=== PATIENT | female | born 1995 | race Caucasian/White ===

== ENCOUNTER 2018-11-18 22:20 | Emergency (ER) | payer OTHER, SELFPAY ==
[2018-11-18 22:21] VITALS: BP 112/74; PULSE 77; RESP 16; TEMP 36.6; O2SAT 100; BMI 21.5
--- NOTE | 2018-11-18 23:05 | CT_ITS ---
STUDY: CT FACIAL BONES WITHOUT CONTRAST REASON FOR EXAM: Female, 23 years old. Fell and hit chin, teeth don't feel aligned now. RADIATION DOSAGE (If Supplied By Facility): CTDIvol = ( 29.38 ) mGy, DLP = ( 503.38 ) mGycm TECHNIQUE: The patient was scanned in a multi detector CT scanner. Sagittal and coronal images were reconstructed. Individualized dose optimization techniques were used for this CT. COMPARISON: None. FINDINGS: Normal soft tissue structures. There is a hairline fracture without displacement involving the anterior mandible symphysis between the central incisors tooth #24 and 25 involving the left central incisor root to the #24. The fracture courses inferiorly right paracentral to the symphysis. Remainder of the visualized mandible is intact. Temporomandibular joints are maintained. Zygomatic arches are intact. Normal orbital ca and orbital contents. Normal nasal bones and anterior nasal spine. Normal facial bones. There is no demonstrated fracture. Moderate chronic sinus disease of the bilateral maxillary sinuses. Minimal mucosal thickening of the bilateral ethmoid sinuses, clear sphenoid, frontal sinuses and mastoid air cells CT/Sinus/Facial Bone IMPRESSION: Nondisplaced fracture of the anterior symphysis mandible with fracture involving the left central incisor root with minimal adjacent lucency to the #24. The remainder of the visualized mandible and temporomandibular joints and facial bones are intact. Moderate chronic sinus disease. Electronically Signed: Janice De Anda MD at 0:00 EDT , Service support ,
[2018-11-18] MEDS: HYDROcodone Bitartrate/Apap 5/325 Tablet PO (23:17)
--- NOTE | 2018-11-18 23:34 | ED.DCSUM_ITS ---
- ER Visit Summary Date of Service: 11/18/18 Chief Complaint: [Fall and injury to chin] History of Present Illness: The patient is a 23 F [presents to the emergency department after sustaining a fall earlier this evening. Patient tripped in her flip-flops while running after the dog and struck her chin on concrete. No loss of consciousness. She denies any neck pain. Patient was initially able to open and close her mouth without difficulty but it become more painful and uncomfortable. Patient unsure of her last tetanus shot. She has no medical history.] Physical Examination: [HEENT-PERRLA, EOMI. Cranial nerves II through XII grossly intact. TMs clear. Mucous membranes moist. No adenopathy. No hemotympanum. No significant malocclusion noted. Patient does have some tenderness to the lower front incisors with a small gap noted between the 2 and small amount of blood between the tooth and the gingiva. No lacerations noted in the mouth. Patient does have a 2.5 cm laceration over the inferior chin. No C-spine tenderness on palpation. Cardiovascular-regular rate and rhythm without murmur or ectopy Lungs-clear to auscultation, chest wall stable without crepitus or subcu emphysema Abdomen-normoactive bowel sounds, soft, nontender, no rebound or rigidity, no peritoneal signs. Extremities-intact ?4, normal range of motion, normal pulses, atraumatic] Test Results: [CT scan of the facial bones obtained which showed a nondisplaced fracture of the mandible anteriorly between teeth 24 and 25.] Emergency Department Course and Treatment: [Laceration repair-wound sterilely draped and prepped. Wound anesthetized locally with 1% lidocaine total 2 cc. Wound cleansed with Shur-Clens and irrigated with copious saline. Particulate debris was removed from the wound which appeared to be grass. Using 6-0 nylon a total of 3 single interrupted sutures placed with good wound edge approximation. Patient tolerated procedure well.] Treatment Plan: [Patient advised to have sutures removed in 5 to 7 days. Patient will be referred to oral maxillofacial surgeon for follow-up. Patient will be started on [place] for pain and Augmentin.] Disposition: [Discharged home in stable condition] Impression: [Mandible fracture Chin laceration 2.5 cm-simple repair] This note was generated with Dragon dictation software. It may contain incorrect words, spelling, and punctuation that were not noted in review of the chart prior to signing ED Disposition - Plan for ED Patient: Referrals: Margarito Kirk MD [Primary Care Provider] -
--- NOTE | 2018-11-19 00:16 | DCINST.ED_ITS ---
ED Disposition - Plan for ED Patient: Instructions: ED Laceration Chin Sutr Tape, ED Fx Mandible Prescriptions: Hydrocodone Bitart/Apap 5-325 [[place] 5MG-325MG] 1 tab PO Q4H PRN PRN 2 Days #20 tab PRN Reason: Pain Amox/Clavulanate Tablet [Augmentin Tablet] 875 mg PO Q12H #20 tab Referrals: Margarito Kirk MD [Primary Care Provider] - Tavon Snyder DDS [STAFF PHYSICIAN] - 3-5 Days
[2018-11-19] MEDS: Diphth,Pertuss(Acell),Tet Vac 0.5 ML Vial IM (00:22)
[2018-11-19] MEDS: Amox/Clavulanate 875 MG Tablet PO (00:33)
[2018-11-19] MEDS: HYDROcodone Bitartrate/Apap 5/325 Tablet PO (00:34)
[2018-11-19 00:45] VITALS: PULSE 90; RESP 16; O2SAT 99
== END 2018-11-19 00:45 | disposition home or self-care (01) ==
PROVIDERS: Emergency Provider Emergency Medicine; Family Provider Family Medicine; PCP Family Medicine
DX: S02.66XB Fracture of symphysis of mandible, initial encounter for open fracture (principal); W01.0XXA Fall on same level from slipping, tripping and stumbling without subsequent striking against object, initial encounter; Y93.02 Activity, running; Y92.008 Other place in unspecified non-institutional (private) residence as the place of occurrence of the external cause; Y99.8 Other external cause status
CPT/HCPCS: 12011; 70486; 90471; 90715; 99285

== ENCOUNTER → 2021-01-13 16:29 | Outpatient (CLI) | payer OTHER, SELFPAY ==
[2021-01-13 17:18] LABS: Absolute Lymphocyte Count 2.53 X10^3/uL (0.83-4.51); Basophil# 0.06 X10^3/uL; Basophil% 0.5 % (0-1); Eosinophil# 0.12 X10^3/uL; Hematocrit 35.3 % (37-47); Hemoglobin 11.9 g/dL (12.0-15.0); Lymphocyte # 2.53 X10^3/ul (0.83-4.51); Lymphocyte % 22.1 % (19-41); Mean Corp Hgb Conc 33.7 g/dL (32-36); Mean Corpuscular Hgb 30.4 pg (27.0-32.0); Mean Corpuscular Volume 90.3 fL (81-99); Mean Platelet Vol. 11.1 fl (6.2-12.0); Monocyte# 0.68 X10^3/uL; Monocyte% 5.9 % (0-10); NRBC Flagged by Analyzer 0 % (0-5); Neutrophil # 8.02 X10^3/uL (2.7-7.7); Neutrophil % 70.2 % (47-70); Platelet Count 321 K/mm3 (150-450); RBC Distribution Width CV 11.9 % (11.6-14.6); RBC Distribution Width SD 38.5 fl (35.1-43.9); Red Blood Count 3.91 M/mm3 (4.2-5.4); White Blood Count 11.4 K/mm3 (4.4-11.0)
[2021-01-14 09:13] LABS: HIV - WCH Non-Reactive (Nonreactive); Hepatitis B Surface Antigen Non-Reactive (Nonreactive); Hepatitis C Antibody Non-Reactive (Nonreactive); Rubella IgG Reactive (Nonreactive); Syphilis Antibodies Non-reactive
[2021-01-16 03:07] LABS: Chlamydia By Nucleic Acid AMP Negative (Negative)
[2021-01-16 07:59] LABS: Gonococcus By Nucleic Acid AMP Negative (Negative)
== END ==
PROVIDERS: PCP Family Medicine; Visit Provider Obstetrics & Gynecology
DX: Z32.01 Encounter for pregnancy test, result positive (principal); Z11.3 Encounter for screening for infections with a predominantly sexual mode of transmission
CPT/HCPCS: 36415; 85025; 86703; 86762; 86780; 86803; 87086; 87088; 87340; 87491; 87591

== ENCOUNTER → 2021-02-27 16:38 | Outpatient (CLI) | payer OTHER, SELFPAY ==
[2021-02-27 17:19] LABS: Hematocrit 35.1 % (37-47); Hemoglobin 12.3 g/dL (12.0-15.0); Mean Corpuscular Hgb 31.1 pg (27.0-32.0); Mean Corpuscular Volume 88.9 fL (81-99); Platelet Count 281 K/mm3 (150-450); RBC Distribution Width CV 12.2 % (11.6-14.6); RBC Distribution Width SD 39.8 fl (35.1-43.9); Red Blood Count 3.95 M/mm3 (4.2-5.4); White Blood Count 11.9 K/mm3 (4.4-11.0)
[2021-02-27 18:25] LABS: Anion Gap 8 (5-15); BUN 11 mg/dL (7-18); BUN/Creat Ratio 18.9 RATIO (10-20); Calcium,Total 9.4 mg/dL (8.5-10.1); Chloride 102 mmol/L (98-107); Creatinine, Serum 0.58 mg/dL (0.55-1.02); EST Glomerular Filtration Rate 131 mL/min (>60); Est Glom Filt Rate - Afr Amer 159 mL/min (>60); Glucose 79 mg/dL (74-106); Potassium 3.6 mmol/L (3.5-5.1); Sodium Level 136 mmol/L (136-145); T4 Free Direct 0.92 ng/dL (0.76-1.46); Thyroid Stim Hormone (TSH) 1.65 uIU/mL (0.358-3.74)
== END ==
PROVIDERS: PCP Family Medicine; Visit Provider Obstetrics & Gynecology
DX: Z34.82 Encounter for supervision of other normal pregnancy, second trimester (principal)
CPT/HCPCS: 36415; 80048; 84439; 84443; 85027

== ENCOUNTER → 2021-04-29 | Outpatient (CLI) | payer OTHER, SELFPAY ==
[2021-04-29 17:10] LABS: Hematocrit 32.5 % (37-47); Hemoglobin 10.9 g/dL (12.0-15.0); Mean Corp Hgb Conc 33.5 g/dL (32-36); Mean Corpuscular Hgb 31.6 pg (27.0-32.0); Mean Corpuscular Volume 94.2 fL (81-99); Mean Platelet Vol. 10.3 fl (6.2-12.0); Platelet Count 286 K/mm3 (150-450); RBC Distribution Width CV 13.6 % (11.6-14.6); RBC Distribution Width SD 46.4 fl (35.1-43.9); Red Blood Count 3.45 M/mm3 (4.2-5.4)
[2021-04-29 17:36] LABS: Glucose Challenge Gest 1H 50g 123 mg/dL (70-140)
== END | disposition home or self-care (01) ==
LOC: LABSPEC 16:38
PROVIDERS: PCP Family Medicine; Visit Provider Obstetrics & Gynecology
DX: Z34.82 Encounter for supervision of other normal pregnancy, second trimester (principal)
CPT/HCPCS: 36415; 82950; 85027

== ENCOUNTER 2021-07-21 17:00 | Outpatient (CLI) | payer OTHER, SELFPAY | END 2021-07-21 23:59 | disposition short-term general hospital (02) | LOC: LABSPEC 07-22 09:04 | PROVIDERS: PCP Family Medicine; Visit Provider Obstetrics & Gynecology | DX: Z36.85 Encounter for antenatal screening for Streptococcus B (principal) | CPT/HCPCS: 87077; 87081; 87186 ==

== ENCOUNTER 2021-08-18 11:30 | Inpatient (IN) | payer OTHER, SELFPAY ==
[2021-08-18] VITALS (13 sets, daily range): BP systolic 100–129; BP diastolic 57–74; PULSE 83–101; TEMP 35.7–36.9; O2SAT 98; BMI 26.8
[2021-08-18 11:29] LABS: ROM Internal Control Test YES-OK TO RESULT pt. (Internal QC)
[2021-08-18 11:30] LABS: ROM Patient Test POSITIVE (Negative)
--- NOTE | 2021-08-18 12:11 | HP.PCM.OB_ITS ---
History and Physical Date of Admission: 08/18/21 Chief complaint: Leakage of fluid History present illness: 26-year-old G1, P0 at 40 weeks and 5 days with GUDELIA: 08/13/2021 by LMP arrives with leakage of clear fluid. Denies headache, visual changes, chest pain, shortness of breath, nausea vomiting, right upper quadrant pain. Patient states good movement. has been complicated by tachycardia status post MFM consult and echo that was within normal limits later resolved in , GBS positive Obstetric history: G1: Current Past medical history: None Medications: vitamin Past surgical history: [place] teeth extraction Allergies: No known drug allergies Social history: Denies smoking, place, drug use Review of systems: Besides above pertinent positives a full review of systems was performed and found to be negative Physical exam: Vitals: Blood pressure 108/60 pulse 88 General: Normal-appearing no acute distress HEENT: Normocephalic/atraumatic no cervical of adenopathy Cardiac/respiratory: No use of accessory muscles, nonlabored breathing Abdomen: Soft, nontender, gravid Extremities: No peripheral edema normal peripheral pulses Psych: Normal affect normal demeanor nonpressured speech Labs: ROM positive Assessment and plan: 18-year-old G1, P0 at 40 weeks and 5 days with spontaneous rupture of membranes Admit labor and delivery CEFM GBS positive: For penicillin Premature rupture of membranes: Patient with spontaneous rupture membranes but minimal cervical dilation will start Cytotec tachycardia: MFM with normal echo, overall resolved and AGA ultrasounds all reassuring. Today NST with normal baseline. Routine orders Anesthesia to see
[2021-08-18] MEDS: miSOPROStol 25 MCG TABLET PO ×3 (12:17→20:38)
[2021-08-18 12:40] LABS: Absolute Lymphocyte Count 1.74 X10^3/uL (0.83-4.51); Absolute Neutrophil Count 11.4 X10^3/uL (2.0-7.7); Basophil# 0.08 X10^3/uL; Basophil% 0.6 % (0-1); Eosinophil# 0.08 X10^3/uL; Eosinophils% 0.6 % (0-5); Hemoglobin 12.4 g/dL (12.0-15.0); Lymphocyte # 1.74 X10^3/ul (0.83-4.51); Mean Corp Hgb Conc 35.4 g/dL (32-36); Mean Corpuscular Hgb 32.1 pg (27.0-32.0); Mean Corpuscular Volume 90.7 fL (81-99); Mean Platelet Vol. 11.1 fl (6.2-12.0); Monocyte# 0.99 X10^3/uL; Monocyte% 6.9 % (0-10); NRBC Flagged by Analyzer 0 % (0-5); Neutrophil # 11.38 X10^3/uL (2.7-7.7); Neutrophil % 78.7 % (47-70); Platelet Count 230 K/mm3 (150-450); RBC Distribution Width CV 12.8 % (11.6-14.6); Red Blood Count 3.86 M/mm3 (4.2-5.4); White Blood Count 14.5 K/mm3 (4.4-11.0)
[2021-08-18] MEDS: Lactated Ringers 1,000 ML 50 ML IV (13:21)
[2021-08-18] MEDS: 0.9% Saline Lock 10 ML Syringe IV ×3 (14:12→22:08)
[2021-08-18] MEDS: Penicillin G 3,000,000 Units 50 ML 100 UNITS IV ×2 (17:33→22:08)
[2021-08-18] MEDS: Lactated Ringers 500 ML 999 ML IV (23:04)
[2021-08-19] VITALS (102 sets, daily range): BP systolic 84–128; BP diastolic 45–74; PULSE 42–120; RESP 16; TEMP 35.9–37; O2SAT 89–100
[2021-08-19] MEDS: Lactated Ringers 500 ML 999 ML IV ×4 (00:40→11:52)
[2021-08-19] MEDS: Ondansetron 4 MG/2 ML Vial IV ×2 (02:00→13:01)
[2021-08-19] MEDS: 0.9% Saline Lock 10 ML Syringe IV ×2 (02:00→13:01)
[2021-08-19] MEDS: Oxytocin 30 units/NS 500 ml 30 UNITS/500 ML IV.SOLN IV (02:08)
[2021-08-19] MEDS: Penicillin G 3,000,000 Units 50 ML 100 UNITS IV ×3 (02:49→10:57)
[2021-08-19] MEDS: fentaNYL-bupivacaine (epidural) 100 ML BAG EPIDURAL ×3 (04:56→14:10)
[2021-08-19] MEDS: Lactated Ringers 1,000 ML 200 ML IV ×2 (04:57→10:55)
--- NOTE | 2021-08-19 08:33 | PN.OBGYN_ITS ---
Subjective Subjective Patient comfortable, overall no complaints. Denies headache, visual changes, chest pain, shortness of breath, nausea vomiting, right upper quadrant pain, fevers or chills Objective Data Objective Data Vital Signs: Vital Signs Temp Pulse BP Pulse Ox 97.4 F L 95 93/51 L 99 08/19/21 08:08 08/19/21 08:08 08/19/21 08:08 08/19/21 08:08 Weight: 166 lb Body Mass Index (BMI) 26.8 Intake & Output: Intake and Output for Last 24 Hours 08/17/21 08/18/21 08/19/21 23:59 23:59 23:59 Intake Total 705.83 / 705.83 Balance 705.83 / 705.83 Lab / Micro Data Result Diagrams: 08/18/21 12:25 Labs: Laboratory Results - last 24 hr 08/18/21 11:05: Vag Amniotic Fld Detect POSITIVE H 08/18/21 12:25: WBC 14.5 H, RBC 3.86 L, Hgb 12.4, Hct 35.0 L, MCV 90.7, MCH 32.1 H, MCHC 35.4, RDW Std Deviation 42.0, RDW Coeff of [place]heed 12.8, Plt Count 230, MPV 11.1, Immature Gran % (Auto) 1.200 H, Neut % (Auto) 78.7 H, Lymph % (Auto) 12.0 L, [place] % (Auto) 6.9, Eos % (Auto) 0.6, Baso % (Auto) 0.6, Absolute Neuts (auto) 11.4 H, Absolute Lymphs (auto) 1.74, Nucleated RBC % 0 08/18/21 12:25: Blood Type AB POSITIVE, Antibody Screen NEGATIVE Micro: Microbiology 08/18/21 12:25 Nasal Secretion SARS-CoV-2 Antigen (Rapid) - Final Physical Exam Const alert, oriented x3, no apparent distress, average body habitus, healthy appearing and well nourished HEENT normocephalic and moist oral mucous membranes Head and Scalp: atraumatic Face and Sinus: normal facial exam Eyes PERRL Neck full ROM Resp normal respiratory effort, no retractions and no use of accessory muscles Psych mental status grossly normal, affect normal, speech normal and activity/motor behavior normal Assessment & Plan (1) : PLAN: Patient seen and examined. Nursing cervical exam 3 cm. Transition to Pitocin. Patient with rupture membranes approximately 24 hours ago. Educa frances patient on prolonged rupture membranes and risk for infection. Patient states understanding wishes to proceed. We will continue current management
[2021-08-19] MEDS: Mag Hydrox/Al Hydrox/Simeth 30 ML UDC PO (10:56)
[2021-08-19] MEDS: Oxytocin 30 units/NS 500 ml 30 UNITS/500 ML IV.SOLN 334 UNITS IV (15:15)
--- NOTE | 2021-08-19 15:39 | EX.PCM.OBRPT ---
Vaginal Delivery Findings Description of Procedure: Normal spontaneous vaginal delivery of a viable male , vertex JOHN. Head and shoulders delivered with ease. Cord cut and clamped. Baby handed off to patient. Placenta delivered via cord traction and fundal massage. IV oxytocin initiated in order to facilitate uterine contractions. Prophylactic Methergine 0.2 mg IM given. Second-degree midline perineal laceration noted and repaired in typical fashion. EBL 500 cc Apgars 8/9
[2021-08-19] MEDS: Acetaminophen 500 MG Tablet 1000 MG PO (17:36)
[2021-08-19] MEDS: Ibuprofen 600 MG Tablet PO (21:35)
[2021-08-19] MEDS: Benzocaine/Lanolin/Aloe Vera 1 SPRAY EACH TOPICAL (21:36)
[2021-08-20] VITALS (13 sets, daily range): BP systolic 104–128; BP diastolic 52–61; PULSE 77–102; RESP 14–18; TEMP 36.1–36.7; O2SAT 97–99
[2021-08-20] MEDS: Acetaminophen 500 MG Tablet 1000 MG PO ×4 (00:44→23:45)
[2021-08-20] MEDS: Ibuprofen 600 MG Tablet PO ×3 (04:12→18:09)
[2021-08-20] MEDS: Senna/Docusate Sodium 1 Tablet PO (09:03)
--- NOTE | 2021-08-20 09:10 | PCM.PN.OB ---
Subjective Subjective Patient without complaints. Minimal vaginal bleeding reported. Wants to go home later today if baby is able to go. Objective Data Objective Data Vital Signs: Vital Signs Temp Pulse Resp BP Pulse Ox 98.0 F 82 16 108/54 L 98 08/20/21 08:49 08/20/21 08:49 08/20/21 08:49 08/20/21 08:49 08/20/21 08:49 Oxygen Delivery Method Room Air Weight: 166 lb Body Mass Index (BMI) 26.8 Intake & Output: Intake and Output for Last 24 Hours 08/18/21 08/19/21 08/20/21 23:59 23:59 23:59 Intake Total 705.83 / 705.83 4959.51 / 4959.51 Output Total 1800 / 1800 1000 / 1000 Balance 705.83 / 705.83 3159.51 / 3159.51 -1000 / -1000 Lab / Micro Data Result Diagrams: 08/18/21 12:25 Micro: Microbiology 08/18/21 12:25 Nasal Secretion SARS-CoV-2 Antigen (Rapid) - Final Assessment & Plan (1) : PLAN: Doing well day #1 status post routine spontaneous vaginal delivery. Will discharge to home later today if baby is able to go.
--- NOTE | 2021-08-20 09:11 | PCM.DC ---
Discharge Instructions Diet Discharge Diet: No restrictions Activity Discharge Activity: May Drive (In 1 to 2 days if not taking narcotic pain medication), May Shower and May Take a Tub Bath May resume sexual activity in: 4-6 weeks Additional Activity Instructions:: Nothing in the vagina for 4-6 weeks. You may return to work/school in 6 weeks. Dressing / Incision Call your doctor if you observe: Fever of 101 or Higher, Inability to urinate, Inability to have a bowel movement and Using more than 1 pad per hour Follow Up Care Please Follow Up With: Osmin Galeana MD When: Call [phone] to make an appointment with your doctor in 6 weeks. Test Results: Test results from this visit will be discussed in further detail at your follow-up appointment, if applicable. Discharge Plan Admission Admit Date/Time: 08/18/21 11:30 Primary Reason for Your Visit: Vaginal Delivery Attending Provider: Osmin Galeana Primary Care Provider: Margarito Kirk Discharge Orders/Prescriptions Prescriptions: No Action famotidine [Pepcid] 20 mg Tablet 20 mg PO DAILY RF: 0 docusate sodium [Colace] 100 mg Capsule 100 mg PO BID RF: 0 Prena1 30 mg iron-1mg -200 mg Capsule 1 cap PO DAILY RF: 0 Referrals / Follow Up: Margarito Kirk MD [Primary Care Provider] - Disposition Disposition (needs filled in before D/C Order can be placed): Home, Self Care
[2021-08-21 03:44] VITALS: BP 92/50; PULSE 83; TEMP 36
[2021-08-21 03:45] VITALS: BP 92/50; PULSE 84; RESP 16; TEMP 36.6; O2SAT 99
[2021-08-21 07:45] VITALS: BP 100/61; PULSE 96; RESP 16; TEMP 36.7
[2021-08-21] MEDS: Ibuprofen 600 MG Tablet PO (07:54)
[2021-08-21 07:56] VITALS: BP 100/61; PULSE 96; TEMP 36.7
--- NOTE | 2021-08-21 08:09 | PCM.DC.BLA ---
Discharge Summary Date of Admission: 08/18/21 Date of Discharge: 08/21/21 Summary: Patient arrived on 08/18/2021 with spontaneous rupture of membranes. With augmented labor progressed to complete dilation and had spontaneous vaginal delivery on 08/19/2021. Routine recovery. Discharge home on 08/21/2021 Physical Exam Const alert, oriented x3, no apparent distress and average body habitus HEENT normocephalic Eyes PERRL Neck full ROM Resp normal respiratory effort, normal air movement and no retractions GI GI Narrative: Uterus firm and below umbilicus Extremity normal to inspection, full ROM and normal capillary refill Psych mental status grossly normal, thought process normal, cooperative and affect normal Meaningful Use Info Meaningful Use Diagnoses (Choose all that apply): None applicable Discharge Plan Admission Admit Date/Time: 08/18/21 11:30 Primary Reason for Your Visit: Vaginal Delivery Attending Provider: Osmin Galeana Primary Care Provider: Margarito Kirk Instructions Additional Instructions / Restrictions: Regular diet. Routine activity. Okay to shower. Okay to drive. No intercourse for 4 to 6 weeks. Weightbearing as tolerated. Call if fevers, chills, chest pain, shortness of breath. Follow-up 2 weeks telehealth visit, 4 to 6 weeks visit Discharge Orders/Prescriptions Prescriptions: No Action famotidine [Pepcid] 20 mg Tablet 20 mg PO DAILY RF: 0 docusate sodium [Colace] 100 mg Capsule 100 mg PO BID RF: 0 Prena1 30 mg iron-1mg -200 mg Capsule 1 cap PO DAILY RF: 0 Referrals / Follow Up: Margarito Kirk MD [Primary Care Provider] - Disposition Disposition (needs filled in before D/C Order can be placed): Home, Self Care
--- NOTE | 2021-08-21 08:12 | PCM.PN.OB ---
Subjective Subjective No overnight complaints. Pain well controlled. Objective Data Objective Data Vital Signs: Vital Signs Temp Pulse Resp BP Pulse Ox 98.1 F 96 16 100/61 99 08/21/21 07:56 08/21/21 07:56 08/21/21 03:45 08/21/21 07:56 08/21/21 03:45 Oxygen Delivery Method Room Air Weight: 166 lb Body Mass Index (BMI) 26.8 Intake & Output: Intake and Output for Last 24 Hours 08/19/21 08/20/21 08/21/21 23:59 23:59 23:59 Intake Total 4959.51 / 4959.51 Output Total 1800 / 1800 1000 / 1000 Balance 3159.51 / 3159.51 -1000 / -1000 Lab / Micro Data Result Diagrams: 08/18/21 12:25 Micro: Microbiology 08/18/21 12:25 Nasal Secretion SARS-CoV-2 Antigen (Rapid) - Final Physical Exam Const alert, oriented x3, no apparent distress, average body habitus, healthy appearing and well nourished HEENT normocephalic and moist oral mucous membranes Head and Scalp: atraumatic Face and Sinus: normal facial exam Neck full ROM Resp normal respiratory effort, no retractions and no use of accessory muscles GI GI Narrative: Uterus firm and below umbilicus Extremity normal to inspection, full ROM and no clubbing, cyanosis or edema Psych mental status grossly normal, affect normal, speech normal and activity/motor behavior normal Assessment & Plan (1) Vaginal delivery: PLAN: day 2. Breast-feeding. Pain well controlled. Okay to discharge home today
[2021-08-21] MEDS: Acetaminophen 500 MG Tablet 1000 MG PO (10:54)
[2021-08-21 12:55] VITALS: BP 107/55; PULSE 98; RESP 16; TEMP 36.9
== END 2021-08-21 14:20 | disposition home or self-care (01) | DRG 807 ==
LOC: WP 08-19 15:10
PROVIDERS: Admitting Provider Obstetrics & Gynecology; PCP Family Medicine; Referring Provider Student in an Organized Health Care Education/Training Program; Visit Provider Obstetrics & Gynecology
DX: O48.0 Post-term pregnancy (principal); Z37.0 Single live birth; O42.12 Full-term premature rupture of membranes, onset of labor more than 24 hours following rupture; O70.1 Second degree perineal laceration during delivery; O99.824 Streptococcus B carrier state complicating childbirth; O76 Abnormality in fetal heart rate and rhythm complicating labor and delivery; Z3A.40 40 weeks gestation of pregnancy; Z20.822 Contact with and (suspected) exposure to COVID-19
CPT/HCPCS: 59025; 59050; 84112; 85025; 86850; 86900; 86901; 87426; 99218; J7120; A4216; G0378; J2405

== ENCOUNTER → 2022-10-20 | Outpatient (CLI) | payer OTHER, SELFPAY ==
[2022-12-19 20:52] LABS: HPV Reflexed? NOT INDICATED
== END | disposition home or self-care (01) ==
LOC: LABSPEC 16:39
PROVIDERS: PCP Family Medicine; Visit Provider Obstetrics & Gynecology
DX: Z12.4 Encounter for screening for malignant neoplasm of cervix (principal)
CPT/HCPCS: 88175; G0145

== ENCOUNTER → 2022-11-03 | Outpatient (CLI) | payer OTHER, SELFPAY ==
--- NOTE | 2022-11-03 14:34 | US_ITS ---
STUDY: ULTRASOUND BREAST - LEFT REASON FOR EXAM: Female, 27 years old. Left upper breast pain. TECHNIQUE: Axial and longitudinal images of the LEFT breast were performed with a high resolution ultrasound transducer. # OF IMAGES: 36 COMPARISON: Comparison is made with prior mammogram done earlier in the day. FINDINGS: LEFT Breast: The upper half of the breast was examined. There is dense fibroglandular tissue. No sonographic abnormality is seen. US/Breast Limited Unilateral IMPRESSION: No sonographic abnormalities seen. ASSESSMENT CATEGORY: BIRADS Category 1: Negative. A letter regarding these results will be sent to the patient by the facility within 30 days. Electronically Signed: Raul Esparza MD at 12:17 EDT ,
--- NOTE | 2022-11-03 14:34 | BI_ITS ---
MAMMOGRAPHY - BILATERAL DIAGNOSTIC REASON FOR EXAM: Female, 27 years old. Left upper breast pain. PERTINENT HISTORY: Grandmother with breast cancer. Aunt with breast cancer. TECHNIQUE: Digital bilateral breast raiza (3D mammographic acquisition) in the CC and MLO projections. 2-D mediolateral oblique (MLO) and craniocaudad (CC) views of both breasts were obtained. CAD: Full Field Digital Mammography with Computer Added Detection was performed. COMPARISON: None. Baseline examination. FINDINGS: Breast Composition: The breasts are extremely dense, which lowers the sensitivity of mammography. There are no dominant masses or suspicious calcifications. No other significant abnormalities are identified. BI/DIAG MAMM W/CAD, BILAT IMPRESSION: Negative diagnostic mammogram. With the patient''s history of left upper outer breast pain, correlation with ultrasound is recommended. ASSESSMENT CATEGORY: BIRADS Category 0: Incomplete. Need additional imaging evaluation. A letter regarding these results will be sent to the patient by the facility within 30 days. Approximately 10% of breast cancers are not detected by mammography. A normal mammogram should not delay biopsy of a clinically suspicious abnormality. Electronically Signed: Raul Esparza MD at 15:41 EDT ,
== END | disposition home or self-care (01) ==
LOC: OPBI 14:30
PROVIDERS: PCP Family Medicine; Referring Provider Obstetrics & Gynecology; Visit Provider Obstetrics & Gynecology
DX: N64.4 Mastodynia (principal)
CPT/HCPCS: 76642; 77062; 77066; G0279